=== PATIENT | male | born 1990 | race Caucasian/White ===

== ENCOUNTER 2017-03-04 10:18 | Emergency (ER) | payer SELFPAY ==
[2017-03-04 10:41] VITALS: BP 154/90; PULSE 71; RESP 20; TEMP 36.6; O2SAT 99; BMI 29.7
--- NOTE | 2017-03-04 10:48 | HMH.EDUTC ---
[facility] [place]: Hand, foot and mouth disease Disposition: Home, Self-Care Condition on Discharge: Good Instructions: Sore Throat, Hand, Foot, and Mouth Disease, DI for Hand, Foot, and Mouth Disease-Child Additional Instructions: Over the counter Motrin or Tylenol as needed for fever or pain THere are many recommendations on the internet for home treatments to help with the discomfort of hand foot and mouth Aveno baths may help to soothe the blisters and itching Return if needed Follow up with family doctor Referrals: Kenna Martins APRN [Primary Care Provider] - Forms: Work/School Release Time of Disposition: 21:27 Medical Decision Making Vital Signs: 03/04/17 10:41 Temperature 98 F Temperature Source Temporal Artery Scan Pulse Rate [Right] 71 Respiratory Rate 20 Blood Pressure [Right Arm] 154/90 Blood Pressure Mean [Right Arm] 111 Blood Pressure Source [Right Arm] Automatic Cuff Blood Pressure Position [Right Arm] Sitting 02 Sat by Pulse Oximetry 99 Oxygen Delivery Method Room Air - Trevon Inquiry Pt receiving controlled substance: No Trevon was queried for this patient: No [facility] [place] - General Stated complaint: blisters hands,nose,ear Mode of Arrival: Ambulatory Source of Information: Patient Limitations: No Limitations Description of Symptoms (Recalled from Triage Doc. by RN): SORE THROAT HEENT Symptoms (Recalled from RN notes): Yes Resp Symptoms (Recalled from RN notes): No Skin Symptoms (Recalled from RN notes): No MS Symptoms (Recalled from RN notes): No Functional Status (Recalled from RN notes): N - History of Present Illness Provider Complaint: Patient states that his child recently had hand foot and mouth States yesterday he didn't feel well and was having sore throat State that last night he noticed that he had blisters on his hands and they have been spreading up his arm State that he has also been having sore throat and worried that he may have strep throat - Related Data Home Medications Medication Instructions Recorded Confirmed No Known Home Medications [No 03/04/17 03/04/17 Known Home Medications] Allergies Allergy/AdvReac Type Severity Reaction Status Date / Time erythromycin base Allergy Mild I-HIVES Verified 03/04/17 10:46 [From [facility]] sulfisoxazole Allergy Mild I-HIVES Verified 03/04/17 10:46 [From P[facility]IAZO[facility]] - Worker's Comp Is this a Worker's Comp case?: No [facility] History I have reviewed the patient's past medical history: Yes - *Social History Smoking Status: Never smoker Alcohol Intake: never - Psychiatric History Expresses thoughts of harming self/others: None Suicide Plan Description: No Plan ROS Obtained: Yes All systems reviewed & no additional complaints Physical Exam - General General appearance: alert, in no apparent distress - Expanded ENT Exam Comment: Throat red, irritated, Red blister like lesions noted in roof of mouth like that seen with hand foot and mouth, no exudate - Respiratory Respiratory exam: Present: normal lung sounds bilaterally. Absent: respiratory distress - Cardiovascular Cardiovascular exam: Present: regular rate, normal rhythm. Absent: JVD - Neurological Exam Neurological exam: Present: alert, oriented X3 - Psychiatric Psychiatric exam: Present: normal affect, normal mood - Skin Skin exam: Present: other (Red blister like rash noted on hands, face, mouth, arms and starting to appear on feet like that commonly seen with hand foot and mouth)
--- NOTE | 2017-03-04 10:52 | ED_ITS ---
[facility] [place] Impression: Hand, foot and mouth disease Disposition: Home, Self-Care Condition on Discharge: Good Instructions: Sore Throat, Hand, Foot, and Mouth Disease, DI for Hand, Foot, and Mouth Disease-Child Additional Instructions: Over the counter Motrin or Tylenol as needed for fever or pain THere are many recommendations on the internet for home treatments to help with the discomfort of hand foot and mouth Aveno baths may help to soothe the blisters and itching Return if needed Follow up with family doctor Referrals: Kenna Martins APRN [Primary Care Provider] - Forms: Work/School Release Time of Disposition: 21:27 Medical Decision Making Vital Signs: 03/04/17 10:41 Temperature 98 F Temperature Source Temporal Artery Scan Pulse Rate [Right] 71 Respiratory Rate 20 Blood Pressure [Right Arm] 154/90 Blood Pressure Mean [Right Arm] 111 Blood Pressure Source [Right Arm] Automatic Cuff Blood Pressure Position [Right Arm] Sitting 02 Sat by Pulse Oximetry 99 Oxygen Delivery Method Room Air - Trevon Inquiry Pt receiving controlled substance: No Trevon was queried for this patient: No [facility] [place] - General Stated complaint: blisters hands,nose,ear Mode of Arrival: Ambulatory Source of Information: Patient Limitations: No Limitations Description of Symptoms (Recalled from Triage Doc. by RN): SORE THROAT HEENT Symptoms (Recalled from RN notes): Yes Resp Symptoms (Recalled from RN notes): No Skin Symptoms (Recalled from RN notes): No MS Symptoms (Recalled from RN notes): No Functional Status (Recalled from RN notes): N - History of Present Illness Provider Complaint: Patient states that his child recently had hand foot and mouth States yesterday he didn't feel well and was having sore throat State that last night he noticed that he had blisters on his hands and they have been spreading up his arm State that he has also been having sore throat and worried that he may have strep throat - Related Data Home Medications Medication Instructions Recorded Confirmed No Known Home Medications [No 03/04/17 03/04/17 Known Home Medications] Allergies Allergy/AdvReac Type Severity Reaction Status Date / Time erythromycin base Allergy Mild I-HIVES Verified 03/04/17 10:46 [From [facility]] sulfisoxazole Allergy Mild I-HIVES Verified 03/04/17 10:46 [From PEDIAZOLE] - Worker's Comp Is this a Worker's Comp case?: No [facility] History I have reviewed the patient's past medical history: Yes - *Social History Smoking Status: Never smoker Alcohol Intake: never - Psychiatric History Expresses thoughts of harming self/others: None Suicide Plan Description: No Plan ROS Obtained: Yes All systems reviewed & no additional complaints Physical Exam - General General appearance: alert, in no apparent distress - Expanded ENT Exam Comment: Throat red, irritated, Red blister like lesions noted in roof of mouth like that seen with hand foot and mouth, no exudate - Respiratory Respiratory exam: Present: normal lung sounds bilaterally. Absent: respiratory distress - Cardiovascular Cardiovascular exam: Present: regular rate, normal rhythm. Absent: JVD - Neurological Exam Neurological exam: Present: alert, oriented X3 - Psychiatric Psychiatri
[2017-03-11 15:05] LABS: UTC Strep Screen (Rapid) Negative (Negative)
== END 2017-03-04 11:37 | disposition home or self-care (01) ==
PROVIDERS: Emergency Provider Nurse Practitioner; PCP Nurse Practitioner Family
DX: B08.4 Enteroviral vesicular stomatitis with exanthem (principal)
CPT/HCPCS: 87880; 99202